=== PATIENT | female | born 1970 | race Caucasian/White ===

== ENCOUNTER 2019-04-10 12:00 | Inpatient (IN) | payer BC ==
[~2019-04-10] VITALS: Ht 165.1 cm; Wt 72.6 kg
[2019-04-10 12:00] VITALS: BP 168/112
[2019-04-10 12:25] LABS: ABSOLUTE NEUTROPHILS 6.7 thou/uL (1.4-8.2); BASOPHILS 0.3 % (0.0-2.0); EOSINOPHILS 2.7 % (0.0-3.0); HEMATOCRIT 41.7 % (37.0-47.0); HEMOGLOBIN 14.2 gm/dL (12.0-15.0); MCH 30.1 pg (26.0-34.0); MCV 88.5 fL (80.0-100.0); MONOCYTES 6.8 % (1.0-8.0); PLATELET COUNT 304 thou/uL (150-400); POLYS 58.2 % (36.0-66.0); RBC 4.71 mil/uL (4.20-5.00); RDW 12.9 % (10.5-14.5); WBC 11.6 thou/uL (4.0-11.0)
[2019-04-10 12:32] LABS: CALCIUM 8.7 mg/dL (8.5-10.1)
[2019-04-10 12:33] LABS: MAGNESIUM 1.9 mg/dL (1.8-2.4)
[2019-04-10 16:09] LABS: URINE BILIRUBIN NEGATIVE (Negative); URINE BLOOD NEGATIVE (Negative); URINE CLARITY CLEAR; URINE COLOR YELLOW; URINE GLUCOSE-RANDOM* TRACE (Negative); URINE KETONES NEGATIVE (Negative); URINE LEUKOCYTES-REFLEX NEGATIVE (Negative); URINE NITRITE-REFLEX NEGATIVE (Negative); URINE PROTEIN (DIPSTICK) NEGATIVE (Negative); URINE UROBILINOGEN 0.2 E.U./dl (0.2-1.0)
[2019-04-10 19:24] VITALS: BP 158/96
[2019-04-10 19:55] VITALS: BP 155/98
[2019-04-10 20:40] VITALS: BP 144/90
--- NOTE | 2019-04-10 23:02 | NUR ---
New pt admitted from the ED with a dx of vertigo. pt is a&ox4. ambulates with standby assist. pt c/o migrain and likes her room dark. pt was able to sleep after she settled in her room. c/o of nausea; mediacted per emar. no vomiting. fall prec in place. call light within reach. v/s stable. no s/s of dstress. will cont to monitor
[2019-04-11 03:51] VITALS: BP 135/85
[2019-04-11 07:59] VITALS: BP 139/87
--- NOTE | 2019-04-11 08:37 | EKG ---
[address] [place] [address] ELECTROCARDIOGRAM REPORT Name: SHANEL SEYMOUR EMMANUELLE Room #: 460-P ADM IN M.R.#: [id number] Admission: 04/10/19 Attend Phys: Beverly Ho MD Discharge: Date of : 70 Report #: [id number] THIS REPORT FOR: //name// [facility] ED Test Date: 2019-04-10 Test Time: 12:28:12 Pat Name: SHANEL SEYMOUR Department: Room: 460 Gender: F [employer] Intern: eugenio : 1970 Requested By: Cesario Abbott Order Number: [id number] MD: Hugo Rose Measurements Intervals [place] Rate: 72 P: 37 HI: 171 QRS: 15 QRSD: 100 T: 24 QT: 419 QTc: 459 Interpretive Statements Sinus rhythm Nonspecific ST segment abnormality No previous ECG available for comparison Electronically Signed On 04-11-2019 8:37:10 CDT by Hugo Rose [email or web address] <ELECTRONICALLY SIGNED> By: Hugo Rose MD, [facility] 04/11/19 0837 1228 1228 Hugo Rose MD, FACC /EPI
[2019-04-11] MEDS ORDERED: LOPRESSOR25 PO (12:34)
[2019-04-11] MEDS ORDERED: IBU600 MG PO (12:34)
[2019-04-11] MEDS ORDERED: ZOFRAN ODT4 MG PO (12:34)
[2019-04-11] MEDS ORDERED: IMITREX 50 MG T50 MG PO (12:34)
--- NOTE | 2019-04-11 13:44 | NUR ---
PT ADMITTED RELATED TO ABDOMINAL PAIN. CM REVIEWED CHART AND SPOKE WITH CARE TEAM. CM MET WITH PT AND SPOUSE AT BEDSIDE THIS DAY. PT IS A&O X4. CM ROLE INTRODUCED. PT INDICATED THAT SHE LIVES IN A HOUSE WITH HER SPOUSE WITH A COUPLE STEPS TO ENTER AND ALL NEEDS ON 1 LEVEL UPON DC. PT INDICATED SHE HAD BEEN IN[employer]NENET WITH GAIT AND [employer] PURCHASING INTERN. PT INDICATED NO DME OR HH HX. PT INDICATED THAT SHE PLANS PT RETURN HOME ONCE MEDICALLY STABLE. CM TO FOLLOW INDICATED WITH DC PLANNING.
[2019-04-11 14:37] VITALS: BP 139/87
[2019-04-11 15:24] VITALS: BP 150/97
--- NOTE | 2019-04-11 16:12 | NUR ---
JEFFREY NOTIFIED BY CM [employer] SUPERVISOR THAT DR DE PAZ STATED PT WILL DC HOME TODAY. NO ANTICIPATED NEEDS. JEFFREY SPOKE WITH BEDSIDE NURSE RT DC TODAY.
--- NOTE | 2019-04-11 17:26 | NUR ---
Assumed patient care at 0715. Patient has had no nausea and/or vomiting. She has required no sliding scale Insulin. Dr Ho came to visit patient, agreed to Discharge patient after she walked the hallway with minimal assist; she did so. Vital signs have been within normal limits, except for blood pressures. Patient verbalized an understanding education regarding this as well as all Discharge Instructions before signing them. Patient left in wheelchair with Escort and at approximately 1735.
[2019-04-11] MEDS ORDERED: PRINIVIL5 MG PO (17:39)
== END 2019-04-11 18:02 | disposition home or self-care (01) | DRG 103 ==
LOC: ER 12:00 → EROBS 17:48 → 4W 17:48 → ENTRNSPT 04-11 17:31 → 4W 04-11 18:02
PROVIDERS: Emergency Medicine; ADMIT Hospitalist
DX: G43.109 Migraine with aura, not intractable, without status migrainosus (principal); I10 Essential (primary) hypertension; E87.6 Hypokalemia; R73.9 Hyperglycemia, unspecified; I95.9 Hypotension, unspecified; Z91.19 Patient's noncompliance with other medical treatment and regimen; Z79.899 Other long term (current) drug therapy
CPT/HCPCS: 10045